=== PATIENT | female | born 1945 | race Caucasian/White ===

== ENCOUNTER → 2016-07-08 | Outpatient (CLI) | payer OTHER ==
[~2016-07-08] MED LIST: ALBU18002 INH; FRS/40 PO; GABA-113 PO; INSDGIPEN SC; LINA1TAB PO; METF-384 PO; NVLNI SC; NVLRPUC SC; PRLSR20 PO; RRNOVOLINR SC; SACU1TAB4 PO
--- NOTE | 2016-07-08 18:09 | DIAGNOSTIC IMAGING REPORT ---
KUB CLINICAL HISTORY: . Operative evaluation. Left-sided kidney stone. COMPARISON STUDY: CT of the abdomen and pelvis January 11, 2016. FINDINGS: A 3 mm calculus within the lower pole pf the left kidney is noted. Pelvic calcifications likely reflect phleboliths although make evaluation for ureteral calculi difficult. There are pelvic surgical clips. Bowel gas pattern is normal. There are cholecystectomy clips. IMPRESSION: 3 mm left renal calculus. No ureteral calculi identified. Electronically signed by: Luis Alberto Paulino M.D. 07/08/2016 6:06 PM Dictated Date/Time: 07/08/2016 6:05 PM
--- NOTE | 2016-07-08 18:09 | DIAGNOSTIC IMAGING REPORT ---
CHEST 2 VIEWS ROUTINE CLINICAL HISTORY: Preoperative evaluation. COMPARISON STUDY: No previous studies for comparison. FINDINGS: Lung volumes are normal. There is no consolidation. No pneumothorax or pleural effusion is present. Mild cardiomegaly is noted. There is no evidence of pulmonary edema. There are suspected calcified mediastinal and hilar lymph nodes. There is no evidence of pulmonary edema. IMPRESSION: 1. No acute cardiopulmonary findings. 2. Mild cardiomegaly. Electronically signed by: Luis Alberto Paulino M.D. 07/08/2016 6:07 PM Dictated Date/Time: 07/08/2016 6:06 PM
[2016-07-08 18:53] LABS: BASO % 0.4 %; BASO ABS # 0.02 K/uL (0-0.2); COMPLETE YES; EOS % 2.2 %; HEMATOCRIT 38.7 % (37-47); IG% 0.2 %; LYMPH % 25.4 %; LYMPH ABS # 1.42 K/uL (1.2-3.4); MEAN CELL VOLUME 87.8 fL (80-100); MEAN CORPUSCULAR HEMOGLOBIN 27.7 pg (25-34); MEAN CORPUSCULAR HGB CONC 31.5 g/dl (32-36); MEAN PLATELET VOLUME 11.2 fL (7.4-10.4); MONO % 9.1 %; NEUT % 62.7 %; PLATELET COUNT 183 K/uL (130-400); RED BLOOD COUNT 4.41 M/uL (4.2-5.4); WHITE BLOOD COUNT 5.58 K/uL (4.8-10.8)
[2016-07-08 19:11] LABS: BLOOD UREA NITROGEN 11 mg/dl (7-18); BUN/CREATININE RATIO 14.3 (10-20); CALCIUM 9.6 mg/dl (8.5-10.1); CARBON DIOXIDE 28 mmol/L (21-32); CHLORIDE 103 mmol/L (98-107); GLUCOSE 200 mg/dl (70-99); POTASSIUM 4.5 mmol/L (3.5-5.1); SODIUM 141 mmol/L (136-145)
== END | disposition home or self-care (01) ==
LOC: C.LAB 17:16
PROVIDERS: ATTEND Urology
DX: N20.0 Calculus of kidney (principal); R10.9 Unspecified abdominal pain

== ENCOUNTER → 2016-08-07 | Outpatient (CLI) | payer OTHER ==
--- NOTE | 2016-08-07 15:57 | DIAGNOSTIC IMAGING REPORT ---
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 Moderate increase in fecal load throughout the colon. No definite calcifications. Several pelvic vascular calcifications on the left. IMPRESSION: No evidence for significant calcifications within limitations of considerable overlying bowel content. Electronically signed by: Elton Strauss M.D. 08/07/2016 3:56 PM Dictated Date/Time: 08/07/2016 3:53 PM
== END | disposition home or self-care (01) ==
LOC: C.RAD 15:10
PROVIDERS: ATTEND Urology
DX: R10.9 Unspecified abdominal pain (principal)

== ENCOUNTER → 2016-08-08 | Day surgery (SDC) | payer OTHER ==
[2016-07-11 11:48] VITALS: BMI 34.0
--- NOTE | 2016-08-05 15:20 | DIAGNOSTIC IMAGING REPORT ---
CHEST 2 VIEWS ROUTINE CLINICAL HISTORY: Preop chest. Renal calculus COMPARISON STUDY: 07/08/2016 FINDINGS: The heart is mildly enlarged. There is no focal pulmonary consolidation. There is no overt failure. There are no pleural effusions. There is a linear area of scar/atelectasis in left midlung zone.[ Calcified mediastinal and hilar lymph nodes are again evident. IMPRESSION: No active disease in the chest. Electronically signed by: Ed Schaefer M.D. 08/05/2016 3:18 PM Dictated Date/Time: 08/05/2016 3:18 PM
[2016-08-05 15:52] LABS: BASO % 0.5 %; BASO ABS # 0.03 K/uL (0-0.2); COMPLETE YES; EOS % 2.9 %; HEMATOCRIT 38.1 % (37-47); IG% 0.2 %; LYMPH % 28.5 %; LYMPH ABS # 1.75 K/uL (1.2-3.4); MEAN CELL VOLUME 87.4 fL (80-100); MEAN PLATELET VOLUME 10.9 fL (7.4-10.4); MONO % 7.7 %; NEUT % 60.2 %; PLATELET COUNT 171 K/uL (130-400); RED BLOOD COUNT 4.36 M/uL (4.2-5.4); WHITE BLOOD COUNT 6.13 K/uL (4.8-10.8)
[2016-08-05 15:55] LABS: URINE APPEARANCE CLEAR (CLEAR); URINE BILIRUBIN NEG (NEG); URINE COLOR YELLOW; URINE NITRITE NEG (NEG); UROBILINOGEN NEG (NEG)
[2016-08-05 16:00] LABS: MANUAL MICROSCOPIC REQUIRED? NO; REVIEW REQ? NO
[2016-08-05 16:10] LABS: BUN/CREATININE RATIO 19.3 (10-20); CALCIUM 9.1 mg/dl (8.5-10.1); CREATININE 0.8 mg/dl (0.60-1.20); POTASSIUM 4.7 mmol/L (3.5-5.1)
[2016-08-07 12:54] VITALS: Ht 177.8 cm; Wt 109.1 kg
[~2016-08-08] VITALS: Ht 177.8 cm; Wt 109.1 kg
[~2016-08-08] MED LIST changes: +ATROPINE SULFATE 0.1 MG/ML 5ML SYR IV PRN; +CIPROFLOXACIN 400MG / D5W IV SCH; +EpHEDrine SULFATE INJ 50 MG/ML AMP IV PRN; +FENTANYL CITRATE INJ 50 MCG/1 ML 2 ML VIAL IV PRN; +FENTANYL CITRATE INJ 50 MCG/1 ML 2 ML VIAL ONE; +LACTATED RINGER'S 1000ML 1,000 ML IV SCH; +MIDAZOLAM HCL 1 MG/ML 2ML VIAL ONE
--- NOTE | 2016-08-08 09:44 | History & Physical Bridge Note ---
H&P Re-Evaluation Bridge Note: I have examined the patient, reviewed the History & Physical and in the interval since the performance of the History & Physical I have noted the following changes of clinical significance: No changes noted
--- NOTE | 2016-08-08 10:08 | Progress Note ---
Progress Note Date of Service Aug 08, 2016. Progress Note Unable to visualize the stone in the OR today. - discussed this with the patient, will d/c her home.
--- NOTE | 2016-08-08 10:10 | Discharge Instructions-SurgCtr ---
Discharge Instructions Visit Reason for Visit: Stones Discharge Discharge Diagnosis / Problem: unable to perform surgery today Discharge Goals Goal(s): Improve function Medications Stopped Medications Name(s): Metformin , last dose Thursday of this week Activity Recommendations Activity Limitations: resume your previous activity Lifting Limitations: none Driving or Machine Use: no limitations Anesthesia . Post Anesthesia Instructions: If you have had General Anesthesia or IV Sedation: * Do not drive today. * Resume driving when surgeon permits. * Do not make important decisions or sign legal documents today. * Call surgeon for: 1. Temperature elevations greater than 101 degrees F. 2. Uncontrollable pain. 3. Excessive bleeding. 4. Persistent nausea and vomiting. 5. Medication intolerance (nausea, vomiting or rash). * For nausea and vomiting use only clear liquids such as: tea, soda, bouillon until nausea subsides, then gradually increase diet as tolerated. * If you have any concerns or questions, call your surgeon's office. If physician is unavailable and it is an emergency, call 911 or go to the nearest emergency room. . Medical Emergencies . Who to Call and When: Medical Emergencies: If at any time you feel your situation is an emergency, please call 911 immediately. . Non-Emergent Contact Non-Emergency issues call your: Urologist Call Non-Emergent contact if: your pain is not controlled, your pain is worsening . . "Provider Documentation" section prepared by Bhaskar Dubose.
[2016-08-08 10:22] VITALS: BP 172/69; PULSE 81; TEMP 36.4; O2SAT 95
== END | disposition home or self-care (01) ==
LOC: X.SURG 07:40
PROVIDERS: ATTEND Urology
DX: N20.0 Calculus of kidney (principal); Z53.09 Procedure and treatment not carried out because of other contraindication